=== PATIENT | female | born 1980 | race Caucasian/White ===

== ENCOUNTER 2025-05-04 00:37 | Emergency (ER) | payer BC ==
[~2025-05-04] VITALS: Ht 165.1 cm; Wt 90.0 kg
[2025-05-04 00:47] VITALS: O2SAT 99
[2025-05-04] MEDS: ACETAMINOPHEN 325MG TABLET PO ONE (02:12)
[2025-05-04] MEDS ORDERED: ACET-2708 MT (02:41)
[2025-05-04 02:55] LABS: HCG SCREEN NEGATIVE
[2025-05-04] MEDS: BACITRACIN 14GM TUBE TOP SCH (03:11)
[2025-05-04 03:30] VITALS: BP 116/66; PULSE 58; RESP 13; TEMP 36.7; O2SAT 99
== END 2025-05-04 03:41 | disposition home or self-care (01) ==
LOC: ER 00:37
DX: S01.01XA Laceration without foreign body of scalp, initial encounter (principal); Z88.0 Allergy status to penicillin; W22.09XA Striking against other stationary object, initial encounter; Y93.89 Activity, other specified; Y92.89 Other specified places as the place of occurrence of the external cause; Y99.8 Other external cause status
CPT/HCPCS: 84703; 70450; 12001; 99284; Z7610; A4606